=== PATIENT | female | born 1965 | race Caucasian/White ===

== ENCOUNTER 2018-04-02 13:56 | Inpatient (IN) | payer MEDICAID ==
[~2018-04-02] VITALS: Ht 165.1 cm; Wt 102.2 kg
[2018-04-02] MEDS ORDERED: LORAZEPAM 2MG/ML CPJ IM ONE (14:45)
[2018-04-02 15:10] LABS: CLARITY URINE CLEAR (CLEAR); COLOR URINE YELLOW (YELLOW); KETONES URINE NEGATIVE (NEGATIVE); LEUKOCYTE ESTERASE URINE NEGATIVE (NEGATIVE); NITRITE URINE NEGATIVE (NEGATIVE); OCCULT BLOOD URINE 1+ (NEGATIVE); PROTEIN URINE 3+ (NEGATIVE); UROBILINOGEN URINE 0.2 E.U./dL (0.2-1.0)
[2018-04-02 15:31] LABS: METHADONE URINE SCREEN NEGATIVE (NEGATIVE); OPIATES URINE SCREEN NEGATIVE (NEGATIVE)
[2018-04-02 15:32] LABS: *AMPHETAMINES SCREEN URINE NEGATIVE (NEGATIVE); *BARBITURATES SCREEN URINE NEGATIVE (NEGATIVE); *BENZODIAZEPINES SCREEN URINE NEGATIVE (NEGATIVE); *COCAINE SCREEN URINE NEGATIVE (NEGATIVE); CANNABINOID URINE SCREEN NEGATIVE (NEGATIVE); PHENCYCLIDINE URINE SCREEN NEGATIVE (NEGATIVE)
[2018-04-02] MEDS ORDERED: FURO40TA5 PO (15:34)
[2018-04-02] MEDS ORDERED: OXYB5TAB PO (15:34)
[2018-04-02] MEDS ORDERED: POTA-79 PO (15:35)
[2018-04-02] MEDS ORDERED: METO-411 PO (15:35)
[2018-04-02] MEDS ORDERED: FAMO20TA8 PO (15:35)
[2018-04-02] MEDS ORDERED: DOXA4TAB3 PO (15:35)
[2018-04-02] MEDS ORDERED: BACL20TA PO (15:35)
[2018-04-02] MEDS ORDERED: LOSA100T14 PO (15:35)
[2018-04-02] MEDS ORDERED: DIPH25TA23 PO (15:35)
[2018-04-02] MEDS ORDERED: HYDR-4135 PO (15:35)
[2018-04-02] MEDS ORDERED: FAMO40OR4 PO (15:35)
[2018-04-02] MEDS ORDERED: GLIP5TAB12 PO (15:35)
[2018-04-02] MEDS ORDERED: ACYC200C PO (15:36)
[2018-04-02] MEDS ORDERED: [UNRECOGNIZED DRUG - CODE] MC (15:36)
[2018-04-02] MEDS ORDERED: CHOL40002 PO (15:36)
[2018-04-02] MEDS ORDERED: CHLO25TA2 PO (15:41)
[2018-04-02] MEDS ORDERED: BUTA-288 PO (15:41)
[2018-04-02] MEDS ORDERED: HYDR-4009 MT (15:41)
[2018-04-02] MEDS ORDERED: METF-414 PO (15:41)
[2018-04-02] MEDS ORDERED: CEPH500T PO (15:41)
[2018-04-02 16:04] LABS: BASOPHILS % 0.2 % (0.0-2.0); EOSINOPHILS % 0.6 % (0.0-5.0); HEMATOCRIT. 35.6 % (36.0-48.0); HEMOGLOBIN. 11.7 g/dL (12.0-16.0); LYMPHOCYTES % 9.1 % (20.0-50.0); MEAN CORPUSCULAR VOLUME 88.2 fL (81.0-99.0); MEAN PLATELET VOLUME 7.6 fl (7.4-10.4); MONOCYTES % 3.1 % (2.0-8.0); PLATELET 360 x1000/uL (130-400); RED BLOOD CELL COUNT 4.03 mill/uL (4.2-5.4); RED CELL DISTRIBUTION WIDTH 15.4 % (11.6-14.6)
[2018-04-02 16:11] LABS: CHLORIDE 107 mEq/L (98-107)
[2018-04-02 16:15] LABS: ETHANOL BLOOD < 10 mg/dL
[2018-04-02 16:20] LABS: CREATINE KINASE 102 IU/L (26-192)
[2018-04-02] MEDS ORDERED: POTASSIUM CHLORIDE 20MEQ TABLET SR PO ONE (17:15)
[2018-04-02] MEDS ORDERED: ACETAMINOPHEN 325MG TABLET PO PRN (17:15)
[2018-04-02] MEDS ORDERED: ENALAPRIL 2.5MG TABLET PO ONE (17:30)
[2018-04-02] MEDS ORDERED: ENALAPRIL 2.5MG/2ML VIAL 2ML IV ONE (17:45)
[2018-04-02] MEDS ORDERED: KETOROLAC 15MG/ML VIAL IV ONE (18:15)
[2018-04-02] MEDS ORDERED: KCL 20MEQ/100ML PREMIX 100 ML IV ONE (19:45)
[2018-04-02] MEDS ORDERED: LORAZEPAM 2MG/ML CPJ IV ONE (19:45)
[2018-04-02] MEDS ORDERED: HYDRALAZINE 20MG/ML VIAL IV PRN (23:45)
[2018-04-03] MEDS ORDERED: HYDRALAZINE 20MG/ML VIAL IV PRN ×2 (03:30→14:30)
[2018-04-03] MEDS ORDERED: ENALAPRIL 2.5MG/2ML VIAL 2ML IV PRN (06:18)
[2018-04-03] MEDS ORDERED: SODIUM CHLORIDE 0.9% 1,000 ML IV SCH (06:25)
[2018-04-03] MEDS ORDERED: ONDANSETRON HCL 4MG/2ML INJ IV PRN (06:30)
[2018-04-03] MEDS ORDERED: ACETAMINOPHEN 325MG TABLET PO PRN (06:30)
[2018-04-03] MEDS ORDERED: LORAZEPAM 2MG/ML CPJ IV PRN ×2 (06:30→10:00)
[2018-04-03 06:47] LABS: HEMATOCRIT. 33.6 % (36.0-48.0); HEMOGLOBIN. 11.1 g/dL (12.0-16.0); MEAN CORPUSCULAR HEMOGLOBIN 29.1 pg (28.0-32.0); MEAN CORPUSCULAR VOLUME 87.8 fL (81.0-99.0); MEAN PLATELET VOLUME 7.3 fl (7.4-10.4); PLATELET 390 x1000/uL (130-400); RED BLOOD CELL COUNT 3.83 mill/uL (4.2-5.4); RED CELL DISTRIBUTION WIDTH 15.4 % (11.6-14.6)
[2018-04-03 06:58] LABS: CHLORIDE 111 mEq/L (98-107)
[2018-04-03 07:06] LABS: LDL CHOLESTEROL 57 mg/dL (5-100)
[2018-04-03 07:07] LABS: HDL CHOLESTEROL 62 mg/dL (40-59)
[2018-04-03 07:17] LABS: PLATELET ESTIMATE NORMAL
[2018-04-03] MEDS ORDERED: SODIUM CHLORIDE 0.45% 1,000 ML IV ONE (09:45)
[2018-04-03] MEDS ORDERED: POTASSIUM CHLORIDE INJ 40 MEQ in DEXT 5% WATER 250 ML IV SCH (10:00)
[2018-04-03 13:20] VITALS: BP_SYST 191; BP_SYST 199; BP_DIAS 101; BP_DIAS 97
[2018-04-03] MEDS ORDERED: HALOPERIDOL LACTATE 5MG/ML VIAL IM PRN (14:15)
[2018-04-03] MEDS: NIFEDIPINE XL 60MG TAB PO SCH ×2 (15:30→21:40)
[2018-04-03 15:59] LABS: T4 FREE 1.26 ng/dL (0.76-1.46)
[2018-04-03 16:16] LABS: FOLIC ACID (FOLATE) SERUM 14.8 ng/mL (>5.38)
[2018-04-03] MEDS: POTASSIUM CHLORIDE INJ 40 MEQ in SODIUM CHLORIDE 0.45% 1,000 ML IV SCH (17:06)
[2018-04-03] MEDS: ENOXAPARIN 30MG/0.3ML SYR SUBCUT SCH (17:07)
[2018-04-03] MEDS: LOSARTAN POTASSIUM 50 MG TABLET PO SCH (18:51)
[2018-04-03] MEDS ORDERED: CEFTRIAXONE 1 G PREMIX 50 ML IV SCH (20:00)
[2018-04-03] MEDS ORDERED: DEXTROSE 50% WATER 50ML SYRINGE IV PRN (20:15)
[2018-04-03 20:20] VITALS: BP 196/118
[2018-04-03 20:50] VITALS: BP 183/105
[2018-04-03] MEDS: INSULIN LISPRO 100 UNITS/ML SUBCUT SCH (21:00)
[2018-04-03 21:38] VITALS: BP 197/90
[2018-04-03] MEDS: METOPROLOL TARTRATE 50MG TABLET PO SCH (21:39)
[2018-04-03] MEDS: BLOOD SUGAR DIAGNOSTIC STRIP TEST SCH (21:40)
[2018-04-03] MEDS: CLONIDINE 0.2MG TABLET PO PRN (21:40)
[2018-04-03 22:00] VITALS: BP 217/98
[2018-04-04] VITALS (9 sets, daily range): BP systolic 116–199; BP diastolic 58–92
[2018-04-04] MEDS: CLONIDINE 0.2MG TABLET PO PRN (01:57)
[2018-04-04] MEDS: ENOXAPARIN 30MG/0.3ML SYR SUBCUT SCH ×2 (05:27→17:06)
[2018-04-04] MEDS: POTASSIUM CHLORIDE INJ 40 MEQ in SODIUM CHLORIDE 0.45% 1,000 ML IV SCH (06:06)
[2018-04-04] MEDS: INSULIN LISPRO 100 UNITS/ML SUBCUT SCH ×3 (06:56→16:42)
[2018-04-04] MEDS: BLOOD SUGAR DIAGNOSTIC STRIP TEST SCH ×3 (06:56→16:42)
[2018-04-04 07:30] LABS: BASOPHILS % 0.5 % (0.0-2.0); LYMPHOCYTES % 14.3 % (20.0-50.0); MEAN CORPUSCULAR HEMOGLOBIN 29.2 pg (28.0-32.0); MEAN CORPUSCULAR VOLUME 87.8 fL (81.0-99.0); MEAN PLATELET VOLUME 8.1 fl (7.4-10.4); MONOCYTES % 6.7 % (2.0-8.0); NEUTROPHILS % 77.5 % (40.0-76.0); PLATELET 402 x1000/uL (130-400); RED BLOOD CELL COUNT 3.76 mill/uL (4.2-5.4); RED CELL DISTRIBUTION WIDTH 15.9 % (11.6-14.6)
[2018-04-04] MEDS: NIFEDIPINE XL 60MG TAB PO SCH (08:16)
[2018-04-04] MEDS: METOPROLOL TARTRATE 50MG TABLET PO SCH (08:19)
[2018-04-04] MEDS: LOSARTAN POTASSIUM 50 MG TABLET PO SCH ×2 (08:19→16:47)
[2018-04-04 08:35] LABS: PHOSPHORUS 2.6 mg/dL (2.5-4.9)
[2018-04-04] MEDS ORDERED: POTASSIUM CHLORIDE 20MEQ TABLET SR PO SCH ×3 (08:45→21:00)
[2018-04-04] MEDS ORDERED: SPIRONOLACTONE 50MG TABLET PO SCH (09:00)
[2018-04-04] MEDS ORDERED: CLONIDINE 0.1MG TABLET PO PRN (17:00)
[2018-04-04] MEDS ORDERED: SODIUM CHLORIDE 0.45% 1,000 ML IV SCH (17:00)
== END 2018-04-04 17:30 | disposition left against medical advice (07) | DRG 469 ==
LOC: ER 14:24 → 8WST 17:10 → EDBEDREQ 17:12 → ENRESERV 21:20 → CANRESERV 21:20 → EDBEDREQ 04-03 02:06 → EDBEDREQSVC 04-03 03:09 → EDBEDREQTM 04-03 03:09 → EDBEDREQ 04-03 03:10 → EDBEDREQSVC 04-03 11:07 → ENRESERV 04-03 11:12 → 8WST 04-03 13:32 → 3WST 04-03 20:20
PROVIDERS: ADMIT Internal Medicine; ATTEND Internal Medicine
DX: N17.9 Acute kidney failure, unspecified (principal); G92 Toxic encephalopathy; E43 Unspecified severe protein-calorie malnutrition; E87.3 Alkalosis; N39.0 Urinary tract infection, site not specified; I50.9 Heart failure, unspecified; E11.22 Type 2 diabetes mellitus with diabetic chronic kidney disease; E11.65 Type 2 diabetes mellitus with hyperglycemia; G89.29 Other chronic pain; Z53.21 Procedure and treatment not carried out due to patient leaving prior to being seen by health care provider; M54.5 Low back pain; E87.0 Hyperosmolality and hypernatremia; R00.1 Bradycardia, unspecified; E87.6 Hypokalemia; D64.9 Anemia, unspecified; I13.0 Hypertensive heart and chronic kidney disease with heart failure and stage 1 through stage 4 chronic kidney disease, or unspecified chronic kidney disease; I16.0 Hypertensive urgency; J45.909 Unspecified asthma, uncomplicated; N18.9 Chronic kidney disease, unspecified; Z78.1 Physical restraint status; Z82.49 Family history of ischemic heart disease and other diseases of the circulatory system; Z79.84 Long term (current) use of oral hypoglycemic drugs; Z79.899 Other long term (current) drug therapy
CPT/HCPCS: 36415; 70551; 71045; 74176; 76770; 80048; 80061; 80305; 82140; 82550; 82607; 82746; 82962; 83036; 83605; 83735; 83880; 84100; 84439; 84443; 84481; 84484; 93005; 93306; 93970; 96365; 96366; 96372; 96375; 99285; G0482; J0360; J0696; J1630; J1650; J1885; J2060; J3480; J3490; J7050; J7060; A4315